=== PATIENT | male | born 2000 | race Caucasian/White ===

== ENCOUNTER 2021-05-18 15:20 | Emergency (ER) | payer SELFPAY ==
[~2021-05-18] VITALS: Ht 181 cm; Wt 72.5 kg
[2021-05-18 15:24] VITALS: BP 123/81
--- NOTE | 2021-05-18 15:33 | ED Integumentary General ---
General Chief Complaint: Skin/Wound Problems Stated Complaint: SPLINTER IS L HAND Source: patient Exam Limitations: no limitations History of Present Illness Date Seen by Provider: May 18, 2021 Time Seen by Provider: 15:30 Initial Comments Patient is a 21-year-old male who presents ED with a possible splinter in his left ring finger on the palmar side. This occurred yesterday while at school when he brushed his hand against a wooden table. Had a small piece of wood in his finger. Used a pocket knife with some improvement. Normal active range of motion. Denies of any severe swelling, redness. Up-to-date on his tetanus. Allergies and Home Medications Patient Home Medication List Home Medication List Reviewed: Yes Cephalexin (Cephalexin) 500 Mg Tablet, 500 MG PO QID Prescribed by: PURVI POWERS on 05/18/21 154 Review of Systems Review of Systems Constitutional: No chills, No diaphoresis, No fever, No malaise, No weakness EENTM: No blurred vision, No vision loss, No mouth pain, No throat pain, No throat swelling Respiratory: No cough, No orthopnea, No short of breath Cardiovascular: No chest pain Gastrointestinal: No abdominal pain, No diarrhea, No nausea, No vomiting Genitourinary: No decreased output, No discharge Musculoskeletal: No back pain, No joint pain; muscle pain All Other Systems Reviewed Negative Unless Noted: Yes Past Qjczfvk-Vgkuvc-Clanlj Hx Patient Social History Tobacco Use?: No Use of E-Cig and/or Vaping dev: No Substance use?: No Alcohol Use?: No Pt feels they are or have been: No Immunizations Up To Date First/Initial COVID19 Vaccinat: UNK Second COVID19 Vaccination Damon: UNK COVID19 Vaccine Burglar Alarm Installer: MODERNA Physical Exam Vital Signs Vital Signs - First Documented 05/18/21 15:24 Temp 36.3 Pulse 86 Resp 18 B/P (MAP) 123/81 (95) Pulse Ox 98 O2 Delivery Room Air Capillary Refill : General Appearance: WD/WN, no apparent distress HEENT: PERRL/EOMI, normal ENT inspection, TMs normal, pharynx normal Neck: non-tender, full range of motion, supple, normal inspection Cardiovascular: regular rate, rhythm, no edema, no gallop, no JVD Respiratory: chest non-tender, lungs clear, normal breath sounds, no respiratory distress, no accessory muscle use Gastrointestinal: normal bowel sounds, non tender, soft Back: normal inspection, no CVA tenderness, no vertebral tenderness Extremities: other (Possible foreign body splinter in left palmar ring finger of left hand. No surrounding redness or swelling. Normal active range of motion.) Procedures/Interventions Progress Consent for procedure provided to patient. Foreign body left ring finger palmar side. 1% lidocaine 1 l with 25-gauge needle was used. Betadine was prepped. Removal of the small foreign body. Bleeding controlled. Patient tired procedure well. Irrigated with normal saline. Bandage was placed. Progress/Results/Core Measures Results/Orders Vital Signs/I&O 05/18/21 15:24 Temp 36.3 Pulse 86 Resp 18 B/P (MAP) 123/81 (95) Pulse Ox 98 O2 Delivery Room Air Departure Communication (Admissions) Successful removal of a small foreign body that appears to be a piece of wood. Patient tired procedure well. Normal active range of motion. No significant cellulitis. Recommend Neosporin. Will discharge with Keflex if symptoms worsen such as redness, swelling. If any worsening symptoms return back to ED for further evaluation. Anti-inflammatories for pain. Impression Primary Impression: Skin foreign body Disposition: HOME, SELF-CARE Condition: Stable Departure-Patient Inst. Decision time for Depature: 15:42 Referrals: NO,LOCAL PHYSICIAN (PCP/Family) Primary Care Physician Patient Instructions: Foreign Body in Skin Scripts Cephalexin (Cephalexin) 500 Mg Tablet 500 MG PO QID for 7 Days, #28 TAB Prov: VINNIE GAMEZ 05/18/21 VINNIE GAMEZ May 18, 2021 15:33
[2021-05-18] MEDS ORDERED: CEPH500T PO (15:42)
== END 2021-05-18 15:48 | disposition home or self-care (01) ==
LOC: ER 15:22
DX: S60.455A Superficial foreign body of left ring finger, initial encounter (principal)
CPT/HCPCS: 99281